=== PATIENT | female | born 1975 | race Caucasian/White ===

== ENCOUNTER → 2017-08-17 | Outpatient (CLI) | payer BC ==
--- NOTE | 2017-08-17 12:18 | MM ---
Reason for exam: screening (asymptomatic). Baseline mammogram. Physical Findings: Nurse did not find any significant physical abnormalities on exam. MG 3D Screening Mammo W/Cad Bilateral CC and MLO view(s) were taken. The breast tissue is extremely dense which could obscure a lesion on mammography. Benign calcifications bilaterally. No significant new findings when compared with previous films. These results were verbally communicated with the patient and result sheet given to the patient on 08/17/17. ASSESSMENT: Benign, BI-RAD 2 RECOMMENDATION: Routine screening mammogram of both breasts in 1 year.
== END | disposition home or self-care (01) ==
LOC: RADMAMWWP 09:40
PROVIDERS: ATTEND Family Medicine
DX: Z12.31 Encounter for screening mammogram for malignant neoplasm of breast (principal)
CPT/HCPCS: 77063; 77067

== ENCOUNTER → 2022-03-06 | Outpatient (CLI) | payer BC ==
[2022-03-06 11:31] LABS: Basophils # (A) 0.06 X 10*3/uL (0.00-0.10); Basophils % (A) 0.9 %; Eosinophils # (A) 0.14 X 10*3/uL (0.04-0.35); Eosinophils % (A) 2.2 %; HCT 44.4 % (37.2-46.3); HGB 13.7 g/dL (12.0-15.0); Immature Grans, Automated 0.2 %; Lymphocytes # (A) 1.25 X 10*3/uL (0.90-5.00); Lymphocytes % (A) 19.5 %; MCH 27.5 pg (27.0-32.0); MCHC 30.9 g/dL (32.0-37.0); MCV 89.2 fL (80.0-97.0); Mean Platelet Volume 9.3 fL (9.5-12.2); Monocytes # (A) 0.46 X 10*3/uL (0.20-1.00); Monocytes % (A) 7.2 %; NRBC Per 100 WBC 0 /100 WBCS (0.0-0.0); Neutrophils # (A) 4.48 X 10*3/uL (1.80-7.70); Platelet Count 316 X 10*3/uL (140-440); RBC 4.98 X 10*6/uL (4.10-5.20); RDW 13.2 % (11.5-14.5)
[2022-03-06 12:35] LABS: ALT 22 U/L (8-44); AST 20 U/L (13-35); African American GFR (CKD) 96.6 (60.0-200.0); Albumin 4.2 g/dL (3.8-4.9); Albumin/Globulin Ratio 1.68 (1.60-3.17); Alkaline Phosphatase 90 U/L (41-126); BUN/Creat Ratio 19.88 Ratio (12.00-20.00); Blood Urea Nitrogen 16.7 mg/dL (9.0-27.0); Calcium 9.2 mg/dL (8.7-10.3); Carbon Dioxide 20.2 mmol/L (20.0-27.5); Chloride 105 mmol/L (96-109); Chol/HDL Ratio 3.64 Ratio; Follicle Stimulating Hormone 7.4 mIU/mL; Globulin 2.5 g/dL (1.6-3.3); Glucose 90 mg/dL (70-110); LDL Cholesterol,Calculated 131.4 mg/dL (0.0-131.0); Non-African American GFR(CKD) 83.4 (60.0-200.0); Potassium 4.4 mmol/L (3.5-5.5); Sodium 138 mmol/L (135-145); Total Bilirubin <0.15 mg/dL (0.30-1.20); Total Protein 6.7 g/dL (6.2-8.2); VLDL Calculation 16.62 mg/dL (5.00-40.00)
== END | disposition home or self-care (01) ==
LOC: LABWHC1 08:34
PROVIDERS: ATTEND Family Medicine
DX: Z01.419 Encounter for gynecological examination (general) (routine) without abnormal findings (principal); Z13.228 Encounter for screening for other metabolic disorders; N92.6 Irregular menstruation, unspecified
CPT/HCPCS: 36415; 80053; 80061; 82670; 83001; 83002; 84144; 84403; 84439; 84443; 85025

== ENCOUNTER → 2022-10-09 | Outpatient (CLI) | payer BC ==
[2022-10-09 13:41] LABS: Basophils # (A) 0.05 X 10*3/uL (0.00-0.10); Basophils % (A) 1.2 %; Eosinophils % (A) 4.6 %; HCT 43.4 % (37.2-46.3); HGB 13.7 d/dL (12.0-15.0); Lymphocytes # (A) 1.04 X 10*3/uL (0.90-5.00); MCH 28.8 pg (27.0-32.0); MCHC 31.6 d/dL (32.0-37.0); MCV 91.2 FL (80.0-97.0); Mean Platelet Volume 10.2 FL (9.5-12.2); Monocytes # (A) 0.42 X 10*3/uL (0.20-1.00); Monocytes % (A) 9.7 %; NRBC Per 100 WBC 0 X 10*3/uL (0.00-0.01); Neutrophils # (A) 2.61 X 10*3/uL (1.80-7.70); Neutrophils % (A) 60.3 %; Platelet Count 315 X 10*3/uL (140-440); RBC 4.76 X 10*6/uL (4.10-5.20); RDW 13.8 % (11.5-14.5); WBC 4.33 X 10*3/uL (4.50-10.00)
== END | disposition home or self-care (01) ==
LOC: LABPAT 08:43
PROVIDERS: ATTEND Obstetrics & Gynecology
DX: Z01.812 Encounter for preprocedural laboratory examination (principal); N92.0 Excessive and frequent menstruation with regular cycle
CPT/HCPCS: 36415; 85025

== ENCOUNTER 2022-10-11 06:21 | Day surgery (SDC) | payer BC ==
[2022-10-07 14:17] VITALS: BMI 25.8
--- NOTE | 2022-10-08 07:30 | HP ---
HISTORY AND PHYSICAL SCHEDULED DATE OF SURGERY: October 11, 2022. HISTORY OF PRESENT ILLNESS: The patient is a 47-year-old 1, para 0-1-0-2, who presents on referral from Dr. Rees for evaluation of menorrhagia. She complains of increasingly heavy bleeding over the last 5 years and developed actual possible menstrual migraines as well. Her cycles occur every 35 days and last for 5 days at a time with bleeding heavy enough to bleed through protection on a fairly regular basis. She reports that her has a vasectomy in place. PAST MEDICAL HISTORY: None. PAST SURGICAL HISTORY: section in 2003. OBSTETRICAL HISTORY: 1, para 0-1-0-2 with a slightly early delivery of twins. Method of contraception is vasectomy. GYNECOLOGIC HISTORY: Unremarkable with no history of any infections to include STDs. FAMILY HISTORY: Noncontributory. SOCIAL HISTORY: The patient is and is a teacher in the [employer]. She is a nonsmoker. Reports occasional alcohol. No other social concerns. CURRENT MEDICATIONS: Include: 1. Fluoxetine 10 mg daily. 2. Nasacort nasal spray as needed. 3. Strattera 80 mg daily. 4. Ibuprofen 800 mg p.r.n. 5. Methocarbamol 750 mg as needed. ALLERGIES: Cipro, which caused itching and hives. REVIEW OF SYSTEMS: Confined to history of present illness. PHYSICAL EXAMINATION: VITAL SIGNS: Stable. The patient is afebrile. GENERAL: This is a well-developed, well-nourished white female, in no acute distress. HEART: Has regular rhythm and rate without murmur. LUNGS: Clear to auscultation bilaterally in all melendez. ABDOMEN: Nondistended. Has normoactive bowel sounds. Soft and nontender without any palpable masses, hepatosplenomegaly, or hernias. EXTREMITIES: Without any cyanosis, clubbing, or edema and are nontender to palpation bilaterally. PELVIC: Demonstrates normal external genitalia and BUS with normal vaginal mucosa and cervix. There is no cervical motion tenderness. Uterus is 4 to 5 weeks in size, mid plane, mobile, nontender, and normal in shape. Endometrial biopsy was performed during the examination, and the patient sounded to 8 cm at that time with benign findings. The adnexa are normal and nontender without mass bilaterally. ASSESSMENT AND PLAN: Menorrhagia. We discussed all potential options including Lysteda, an oral contraceptive pill, NuvaRing, Mirena, and NovaSure ablation. The patient has chosen diagnostic hysteroscopy with NovaSure endometrial ablation. The risks and complications have been discussed at length including the risks for bleeding, bleeding requiring transfusion, infection, and injury to local structures to specifically include uterine perforation, Asherman syndrome, and subsequent hematometra. She has understood all of these concerns and has agreed to proceed. We are scheduled for diagnostic hysteroscopy with NovaSure endometrial ablation on the morning of October 11, 2022. MMODL / IJN: [id number] /
[~2022-10-11 06:21] MED LIST: Pre Op ABX Message 1 EACH MISC MISCELLANE ONE
[2022-10-11] MEDS ORDERED: LACTATED RINGERS 1,000 ML IV SCH ×2 (06:41→08:15)
[2022-10-11] MEDS ORDERED: ONDANSETRON 4 MG/2 ML VIAL IVP ONE (06:41)
[2022-10-11] MEDS ORDERED: LIDOCAINE 1% (10MG/ML) FOR IV START INTRADERMA PRN (06:41)
[2022-10-11] MEDS ORDERED: DEXAMETHASONE SOD PHOSPHATE 4 MG/ML 1 ML VIAL IV ONE (06:41)
[2022-10-11] MEDS ORDERED: droPERidol 5 MG/2 ML VIAL IVP ONE (06:41)
[2022-10-11] MEDS ORDERED: HYDROmorphone 0.5 MG/0.5 ML SYRINGE IVP PRN (06:41)
[2022-10-11] MEDS ORDERED: ONDANSETRON 4 MG/2 ML VIAL ONE (06:44)
[2022-10-11] MEDS ORDERED: PROPOFOL 10 MG/ML 20 ML VIAL IV ONE (07:24)
[2022-10-11] MEDS ORDERED: MIDAZOLAM 2 MG/2 ML VIAL ONE (07:24)
[2022-10-11] MEDS ORDERED: LIDOCAINE 2% INJ 20 MG/ML (2 ML VIAL) ONE (07:24)
[2022-10-11] MEDS ORDERED: fentaNYL (PF) 50 MCG/ML 2 ML AMP ONE (07:24)
[2022-10-11] MEDS ORDERED: KETOROLAC 15 MG/ML 1 ML VIAL IVP PRN (08:04)
[2022-10-11] MEDS ORDERED: ONDANSETRON 4 MG/2 ML VIAL IVP PRN (08:04)
[2022-10-11] MEDS ORDERED: METOCLOPRAMIDE 5 MG/ML 2 ML VIAL IVP PRN (08:04)
[2022-10-11] MEDS ORDERED: IBUPROFEN 600 MG TAB PO PRN (08:04)
[2022-10-11] MEDS ORDERED: Acetaminophen-Codeine 300-30mg TAB PO PRN ×2 (08:04)
[2022-10-11] MEDS ORDERED: SIMETHICONE 80 MG CHEWABLE PO PRN (08:04)
[2022-10-11] MEDS ORDERED: diphenhydrAMINE 50 MG/ML 1 ML VIAL IVP PRN (08:04)
--- NOTE | 2022-10-11 08:11 | P.OP ---
Date of Procedure: 10/11/22 Preoperative Diagnosis: #1. Menorrhagia Postoperative Diagnosis: Same Procedure(s) Performed: #1. Diagnostic hysteroscopy #2. NovaSure endometrial ablation Anesthesia: other (Gen. by LMA) Surgeon: Jordi Bloom Estimated Blood Loss (ml): 5 IV fluids (ml): 400 Urine output (ml): 10 Pathology: none sent Condition: stable Disposition: PACU Operative Findings: Preoperative pelvic examination demonstrated a 4-5 week midplane mobile normal shaped uterus with normal adnexa bilaterally. Intraoperatively, the uterus sounded to approximately 9 cm with a cervical length of approximately 4 cm. The hysteroscope did not provide excellent visualization of the endometrial cavity secondary to the patient having started her menses and blood floating in the matrix. Nevertheless, the tubal ostia were seen bilaterally. The postproce dural result appeared to be excellent but there was still blood floating within the saline making visualization of the entire cavity difficult. The patient is a poor candidate for vaginal hysterectomy should become necessary in the future. Description of Procedure: The patient was prepped and draped in usual fashion after general anesthesia was administered by the anesthesiologist. A weighted speculum was placed in the bladder drained of approximately 10 mL of clear donna urine. The anterior lip of the cervix was grasped with a single-tooth tenaculum and the uterus sounded to 9 cm with a 4 cm cervical length. Serial dilation was carried out to admit the diagnostic hysteroscope which was placed and the cavity which was then distended with normal saline. Visualization was difficult secondary to the patient having just started her menses and in fair amount of blood floating within normal saline matrix inside the cavity. The tubal ostia were seen. There did not appear to be any significant pathology present. The scope was then set aside and the NovaSure tool placed into the endometrial cavity, opened, and seated well. The settings for the tool were a length of 5.0 cm, a width of 3.6 cm for a total power of 99 W. The cavity check was attempted and passed without difficulty. The tool was enabled and the run was started. After total run time of 116 seconds, the base unit read "procedure complete." The 2 was closed, removed, and discarded. The diagnostic scope was replaced within the endometrial cavity and the [place] appeared to be ablated well but there was still blood floating in the matrix making visualization of the entire cavity very difficult. All instrumentation was removed. There is no ongoing bleeding from either the tenaculum sites or of any significance from the cervix. All sponge, instrument, needle counts were correct. Estimated blood loss for the case was approximate 5 mL or less. There were no complications.
[2022-10-11 08:19] VITALS: TEMP 96.6
[2022-10-11] MEDS ORDERED: KETOROLAC 15 MG/ML 1 ML VIAL IVP ONE (08:20)
[2022-10-11] MEDS ORDERED: HYDROmorphone 0.5 MG/0.5 ML SYRINGE IVP ONE (08:43)
[2022-10-11] MEDS ORDERED: LACTATED RINGERS 800 ML IV ONE (08:53)
[2022-10-11 09:26] VITALS: BP 132/91; PULSE 69; RESP 15
[2022-10-12] MEDS ORDERED: ACETAMINOPHEN TAB 325 MG TAB PO PRN (08:05)
== END 2022-10-11 09:43 | disposition home or self-care (01) ==
LOC: OR 06:21
PROVIDERS: ATTEND Obstetrics & Gynecology
DX: N92.0 Excessive and frequent menstruation with regular cycle (principal); N85.7 Hematometra; K21.9 Gastro-esophageal reflux disease without esophagitis; Z88.1 Allergy status to other antibiotic agents; Z79.899 Other long term (current) drug therapy; Z98.891 History of uterine scar from previous surgery
CPT/HCPCS: 58563; 81025; J2250; J1100; J2405; J3010; J1885; J2704; J1170; J2001